=== PATIENT | male | born 1965 | race Caucasian/White ===

== ENCOUNTER 2024-09-16 11:34 | Emergency (ER) | payer BC, SELFPAY ==
--- NOTE | 2024-09-16 11:39 | ED.EXTPRO ---
HPI - Extremity Problem General Chief complaint: Extremity Problem,Nontraumatic Stated complaint: L LEG SWELLING Source: patient and RN notes reviewed Mode of arrival: ambulatory Limitations: no limitations History of Present Illness HPI Narrative: Patient is a 58-year-old male who presents to the [facility] complaints left lower leg pain and swelling that started yesterday morning. Patient states that he woke up with the pain and swelling. He also noted a discoloration to his left lower leg yesterday. States that the pain is present when ambulating. There is notable swelling in the left lower leg compared to that of the right. Reddish/purplish discoloration noted to the left lower leg upon assessment. Sensation is intact and patient denies numbness. Patient is neurovascularly intact. He denies any recent travel. Denies chest pain or shortness of breath. Denies injury to the leg. Related Data Allergies Allergy/AdvReac Type Severity Reaction Status Date / Time No Known Allergies Allergy Verified 09/16/24 11:47 Review of Systems Review of Systems: CONSTITUTIONAL: Denies fever, chills, or sweats. EYES: Denies visual changes, redness, or discharge. ENT: Denies otalgia and sore throat CARDIOVASCULAR: Denies chest pain, palpitations, or edema. RESPIRATORY: Denies cough or dyspnea. GASTROINTESTINAL: Denies abdominal pain, nausea, vomiting, or diarrhea. GENITOURINARY: Denies dysuria or hematuria. SKIN: Reports discoloration to the left lower leg. MUSCULOSKELETAL: Reports left lower leg pain and swelling. NEUROLOGIC: Denies headache, numbness, or weakness. Pertinent positives per HPI. PMFSH Comments At the time of my signature, I reviewed and agree with the nursing past medical, surgical, social, and family history. There is no relevant family history pertinent to the patient complaint. Exam Narrative: GENERAL: This is a well-nourished, well-developed patient, in no apparent distress. HEAD: normocephalic, atraumatic. EYES: Sclera clear/white. Vision is grossly intact. EARS: External ears normal. Hearing grossly intact. NOSE: External nose normal with no obvious nasal discharge, nares without redness, no rhinorrhea. THROAT: Mucous membranes moist. NECK: Neck supple, non-tender without lymphadenopathy, masses or thyromegaly. CARDIOVASCULAR: Regular rate and rhythm without murmurs, gallops, or rubs. RESPIRATORY: Clear to auscultation. Breath sounds equal bilaterally. No wheezes, rales, or rhonchi. GASTROINTESTINAL: Abdomen soft, non-tender, nondistended. Bowel sounds are active. No hepato-splenomegaly, or palpable masses. No guarding. SKIN: Warm, intact. Purpura rash noted to the left lower leg. NEURO: awake, alert, and oriented to person, place and time. There were no obvious focal neurologic abnormalities. EXTREMITIES: Notable swelling to left lower leg. Distal motor and neurovascular status intact. Course Course Level of Care: Express Care Visit Vital Signs Vital signs: Vital Signs Temperature 97.5 F L 09/16/24 11:43 Pulse Rate 90 09/16/24 11:43 Respiratory Rate 16 09/16/24 11:43 Blood Pressure 163/101 H 09/16/24 11:43 Pulse Oximetry 100 09/16/24 11:43 Temperature 97.5 F L 09/16/24 11:43 Pulse Rate 90 09/16/24 11:43 Respiratory Rate 16 09/16/24 11:43 Blood Pressure 163/101 H 09/16/24 11:43 Pulse Oximetry 100 09/16/24 11:43 Reviewed Transfer Transfered to: [place] Transportation: Other (private vehicle) Transfer rationale: Appropriate testing and treatment for left lower leg pain and swelling Accepting physician: Dr. Garcias [facility] - Extremity (Nontraumatic) [facility] Narrative Medical decision making narrative: Patient was transferred to [facility] ED for further evaluation and treatment of his left lower leg pain and swelling. Patient was accepted by Dr. Garcias. Patient will be transferred via private vehicle. Differential Diagnosis Differential diagnosis: Likely cellulitis, superficial thrombophlebitis, lower extremity edema, deep vein thrombosis of lower extremity and other (vasculitis) Critical Care Time Critical Care Time Critical Care Time: No Discharge Plan Discharge Clinical Impression: Pain and swelling of left lower leg Patient Disposition: Acute Care Hospital Condition: Stable Additional Instructions: Go directly to [facility] emergency department for further evaluation and treatment. Patient Language: Wolof Follow-up/Referrals: Janeth,Venancio Haro MD [Primary Care Provider] - Time of Disposition: 11:51
[2024-09-16 11:43] VITALS: BP 163/101; PULSE 90; RESP 16; TEMP 36.4; O2SAT 100
== END 2024-09-16 11:51 | disposition short-term general hospital (02) ==
PROVIDERS: Emergency Provider Nurse Practitioner; PCP Family Medicine Sports Medicine
DX: M79.662 Pain in left lower leg (principal); R22.42 Localized swelling, mass and lump, left lower limb
CPT/HCPCS: 99212; G0463

== ENCOUNTER 2024-09-16 12:09 | Emergency (ER) | payer BC, SELFPAY ==
--- NOTE | ~2024-09-16 | US_ITS ---
EXAMINATION: US venous doppler [facility] DATE: 09/16/2024 13:36 INDICATION: Left lower limb pain, swelling and erythema TECHNIQUE: Grayscale ultrasound images without and with compression and Doppler ultrasound images of the left lower extremity veins were obtained. COMPARISON: None. FINDINGS: The visualized portions of left common femoral vein, profunda (deep) femoral vein, femoral vein, popl iteal vein, peroneal veins, posterior tibial veins, gastrocnemius vein and greater saphenous vein out flow are patent. IMPRESSION: 1. No deep venous thrombosis in the left lower limb. Reviewed, dictated and finalized at location B. [facility]
[2024-09-16 12:12] VITALS: BP 180/88; PULSE 86; RESP 18; TEMP 36.7; O2SAT 100
--- NOTE | 2024-09-16 13:08 | ED.EXTPRO ---
HPI - Extremity Problem General Chief complaint: Extremity Problem,Nontraumatic Stated complaint: Left leg inflammation and swelling since yesterday Time Seen by Provider: 09/16/24 12:21 History of Present Illness HPI Narrative: Patient is a 58-year-old male who presents ER with inflammation to the left leg. Ongoing for approximately 48 hours. Initially had some fever sensation of fever and fatigue. He then developed discomfort to the leg. He had bruising this morning above his sock line. He reports it is itchy was unsure if he scratched it too hard. No chest pain or chest pressure. Has not had issues like this before. No change in urination. Related Data Allergies Allergy/AdvReac Type Severity Reaction Status Date / Time No Known Allergies Allergy Verified 09/16/24 12:10 Review of Systems Review of Systems: All systems reviewed & are unremarkable except as noted in HPI and below Constitutional: Constitutional: Reports no additional constitutional complaints ENT: Reports system reviewed and no additional complaints, except as documented Cardiovascular: Cardiovascular: Reports no additional cardiovascular complaints Respiratory: Respiratory: Reports no additional respiratory complaints Musculoskeletal: Musculoskeletal: Reports no additional musculoskeletal complaints Integumentary/Breasts: Skin/Breast: Reports erythema and Reports rash PMFSH Past Medical History Medical History (Updated 09/16/24 @ 15:55 by Herve Matos MD) Healthy adult male Surgical History Surgical History (Updated 09/16/24 @ 13:10 by Herve Matos MD) No pertinent past surgical history Exam Narrative: GENERAL: Well-appearing, well-nourished, and in no acute distress. HEAD: Normocephalic, atraumatic. ENT: Mucous membranes moist. CHEST: Clear to auscultation. No respiratory distress. HEART: Regular rate and rhythm. Normal peripheral pulses. ABDOMEN: Soft, nontender, nondistended. EXTREMITIES: Normal range of motion. LLE>RLE edema. SKIN: Warm, dry, reddish contusion circumferentially around distal third of tibia. NEURO: Alert and oriented x3. PSYCH: Normal mood and affect. Course Course Emergency Course: Labs reassuring. No DVT. Discharge with oral antibiotics for cellulitis. Vital Signs Vital signs: Vital Signs Temperature 98.0 F 09/16/24 12:12 Pulse Rate 86 09/16/24 12:12 Respiratory Rate 18 09/16/24 12:12 Blood Pressure 180/88 H 09/16/24 12:12 Pulse Oximetry 100 09/16/24 12:12 Oxygen Delivery Room Air 09/16/24 12:12 Temperature 98.0 F 09/16/24 12:12 Pulse Rate 82 09/16/24 14:42 Respiratory Rate 17 09/16/24 14:42 Blood Pressure 167/88 H 09/16/24 14:42 Pulse Oximetry 99 09/16/24 14:42 Oxygen Delivery Room Air 09/16/24 12:12 MDM - Extremity (Nontraumatic) Lab Data 09/16/24 12:58 09/16/24 12:58 Labs: Lab Results 09/16/24 Range/Units 12:58 WBC 8.3 (4.5-10.0) K/mm3 RBC 4.30 L (4.6-6.20) M/mm3 Hgb 14.6 (14.0-18.0) g/dL Hct 42.4 (42.0-52.0) % MCV 98.6 (80-100) fl MCH 34.0 (26-34) pg MCHC 34.4 (32-36) g/dl RDW 11.9 (11.5-14.5) % Plt Count 179 (150-375) k/mm3 MPV 9.5 (7.4-10.4) fl Immature Gran % (Auto) 0.4 (0-0.5) % Neut % (Auto) 76.0 H (45.5-73.1) % Lymph % (Auto) 12.1 L (18.3-44.2) % [place] % (Auto) 10.5 H (2.6-8.5) % Eos % (Auto) 0.5 (0-4.4) % Baso % (Auto) 0.5 (0.2-1.2) % Lymph # (Auto) 1.00 (0.9-3.2) K/mm3 [place] # (Auto) 0.9 H (0.1-0.6) K/mm3 Eos # (Auto) 0.0 (0-0.3) K/mm3 Baso # (Auto) 0.0 (0.0-0.1) K/mm3 Abs Immat Gran (auto) 0.03 (0.00-0.031) K/mm3 Absolute Neuts (auto) 6.3 (1.3-6.7) K/mm3 Absolute Nucleated RBC 0.000 (0.0-0.012) K/mm3 Nucleated RBC % 0.0 (0.0-0.2) % PT 13.5 (11.1-14.7) Seconds INR 1.0 APTT 30.1 (22.3-36.8) Seconds Sodium 138 (137-145) mmol/L Potassium 3.9 (3.4-5.0) mmol/L Chloride 102 (98-107) mmol/L Carbon Dioxide 22 (22-30) mmol/L Anion Gap 14 H (4-12) mmol/L BUN 10 (9-20) mg/dL Creatinine 0.73 (0.7-1.3) mg/dL Estim Creat Clear Calc 81 ml/min Estimated GFR > 60 (59 - ) Glucose 110 (65-110) mg/dL Calcium 9.9 (8.4-10.2) mg/dL Total Bilirubin 0.5 (0.2-1.3) mg/dL AST 27 (17-59) U/L ALT 20 (6-50) U/L Alkaline Phosphatase 79 (38-126) U/L Total Protein 8.0 (6.3-8.2) g/dL Albumin 4.1 (3.5-5.1) g/dL Urine Color Yellow (Yellow) Urine Appearance Clear (Clear) Urine pH 6.0 (5.0-9.0) Ur Specific [place] 1.022 (1.001-1.035) Urine Protein 1+ H (Negative) mg/dL Urine Glucose (UA) Negative (Negative) mg/dL Urine Ketones Trace H (Negative) mg/dL Ur Blood (Man) Negative (Negative) Urine Nitrate Negative (Negative) Urine Bilirubin Negative (Negative) Urine Urobilinogen 1.0 (<2.0) mg/dL Add Ur Microanalysis Reviewed Leukocyte Esterase Rfl Negative (Negative) JAMAAL/UL Urine RBC 0-2 (0-2) /hpf Urine WBC 0-5 (0-3) /hpf Ur Squamous Epith Cells None seen (Few) /hpf Urine Bacteria None seen /hpf Urine Casts 6-10 Hyaline Casts Present (None) /lpf Influenza A (RT-PCR) Negative (Negative) Influenza B (RT-PCR) Negative (Negative) RSV (RT-PCR) Negative (Negative) SARS-CoV-2 RNA (RT-PCR) Negative (Negative) Imaging Data Radiologist's impression: ITS Impressions Venous Doppler Study 09/16/24 13:39 IMPRESSION: 1. No deep venous thrombosis in the left lower limb. Discharge Plan Discharge Clinical Impression: Cellulitis Patient Disposition: Home, Self-Care Condition: Stable Instructions: Antibiotic Form, Cellulitis (ED) Additional Instructions: Return the ER if you have words ending redness, have fever over 101F, or you have other concerns. Patient Language: Amharic Prescriptions: New cefuroxime axetil 500 mg tablet 500 mg PO BID Qty: 14 0RF Follow-up/Referrals: Janeth,Venancio Haro MD [Primary Care Provider] - 1 Week
[2024-09-16 13:09] LABS: Basophils Percent Auto 0.5 % (0.2-1.2); Eosinophils Percent Auto 0.5 % (0-4.4); Hematocrit 42.4 % (42.0-52.0); Hemoglobin 14.6 g/dL (14.0-18.0); Immature Granulocyte Absolute 0.03 K/mm3 (0.00-0.031); Immature Granulocyte Percent A 0.4 % (0-0.5); Lymphocytes Percent Auto 12.1 % (18.3-44.2); Mean Corpuscular HGB Conc 34.4 g/dl (32-36); Mean Corpuscular Volume 98.6 fl (80-100); Mean Platelet Volume 9.5 fl (7.4-10.4); Monocytes Absolute Auto 0.9 K/mm3 (0.1-0.6); Monocytes Percent Auto 10.5 % (2.6-8.5); Neutrophils Absolute Auto 6.3 K/mm3 (1.3-6.7); Platelet Count Result 179 k/mm3 (150-375); Red Cell Distribution Width 11.9 % (11.5-14.5); White Blood Count 8.3 K/mm3 (4.5-10.0)
[2024-09-16 13:22] LABS: Alanine Aminotransferase 20 U/L (6-50); Albumin Level 4.1 g/dL (3.5-5.1); Alkaline Phosphatase 79 U/L (38-126); Anion Gap 14 mmol/L (4-12); Aspartate Amino Transferase 27 U/L (17-59); Bilirubin,Total 0.5 mg/dL (0.2-1.3); Blood Urea Nitrogen 10 mg/dL (9-20); Calcium 9.9 mg/dL (8.4-10.2); Carbon Dioxide 22 mmol/L (22-30); Chloride 102 mmol/L (98-107); Estimated CRCL calculation 81 ml/min; Estimated Glomerular Filt Rate > 60; Glucose 110 mg/dL (65-110); Potassium 3.9 mmol/L (3.4-5.0); Sodium 138 mmol/L (137-145)
[2024-09-16 13:28] LABS: Prothrombin Time 13.5 Seconds (11.1-14.7)
[2024-09-16 13:29] LABS: Partial Thromboplastin Time 30.1 Seconds (22.3-36.8)
--- OUTSIDE RECORDS SUMMARY | 2024-09-16 13:37 | XMS_ITS | Clinical Summary ---
Author Organization [facility] Address [address] [place] [address] Care Team Providers Care Editor Greeting Card Name Role Phone Venancio Fowler MD Primary Care Provider [phone] Allergies No known active allergies Medications albuterol sulfate HFA 108 (90 Base) MCG/ACT inhalerIndicatio ns:Chronic obstructive pulmonary disease, unspecified COPD type (CMS/HCC HHS/HCC) INHALE 2 PUFFS INTO THE LUNGS EVERY 6 (SIX) HOURS NEEDED FOR WHEEZING OR SHORTNESS OF BREATH. 18 g 2 4 Active ANORO ELLIPTA 62.5-25 MCG/ACT inhalerIndicatio ns:Chronic obstructive pulmonary disease, unspecified COPD type (CMS/HCC HHS/HCC) TAKE 1 PUFF BY MOUTH EVERY DAY 60 each 1 5 Active Active Problems Problem Noted Date Diagnosed Date Primary hypertension 08/23/2022 Chronic obstructive pulmonar y disease, unspecified COPD type (CMS/HCC HHS/HCC) 08/23/2022 Family History Relation Status Comments Father Mother Alive Social History Tobacco Use Types Packs/Day Years Used Date Smoking Tobacco: Every Day Cigarettes 0.5 40 Smokeless Tobacco: Never Tobacco Cessation:Ready to Q uit: No; Counseling Given: Yes Alcohol Use Standard Drinks/Week Comments Yes 0 (1 standard drink = 0.6 oz pur e alcohol) PHQ-2 Answer Date Recorded Patient Health Questionnaire-2 Score 0 05/21/2024 Sex and Gender Information Value Date Recorded Sex Assigned at Not on file Legal Sex Male 7:58 PM CDT Gender Identity Not on file Sexual Orientation Not on file Last Filed Vital Signs Vital Sign Reading Time Taken Comments Blood Pressure 135/87 05/21/2024 3:19 PM SENIOR ANALYST PROGRAMMER Pulse 94 05/21/2024 3:19 PM SENIOR ANALYST PROGRAMMER Temperature 37.1 C (98.8 F) 05/21/2024 3:19 PM SENIOR ANALYST PROGRAMMER Respiratory Rate 16 05/21/2024 3:19 PM SENIOR ANALYST PROGRAMMER Oxygen Saturation 99% 05/21/2024 3:19 PM SENIOR ANALYST PROGRAMMER Inhaled Oxygen Concentration - - Weight 59.7 kg (131 lb 9.6 oz) 05/21/2024 3:19 P M SENIOR ANALYST PROGRAMMER Height 169.5 cm (5' 6.75 ) 05/21/2024 3:19 PM CS T Body Mass Index 20.77 05/21/2024 3:19 PM SENIOR ANALYST PROGRAMMER Plan of Treatment Health Maintenance Due Date Last Done Comments Colorectal Cancer Screening Colonoscopy (10 Years) 1965 Annual Physical 1968 Pneumococcal Vaccine: Pediat rics (0 to 5 Years) and At-Risk Patients (6 to 64 Years) (1 of 2 - PCV) 11/09/1971 Hepatitis C 11/09/1983 DTaP, Tdap and Td Vaccines ( 1 - Tdap) 1984 Hepatitis B Vaccines (1 of 3 - 19+ 3-dose series) 1984 Lung Cancer Screening 11/09/2015 Zoster Vaccines (1 of 2) 11/09/2015 PHQ-2 (Physician Citizen [place]) 07/15/2024 05/21/2024 COVID-19 Vaccine (1 - 2023-2 5 season) 2025 Postponed from 03/15 (Patient Refused) Influenza Adult (#1) 2025 Postpon ed from 04/14/2024 (Patient Refused) PHQ-2 (Physician [place]) 05/21/2025 05/21/2024 Meningococcal B Vaccine Aged Out No l onger eligible based on patient's age to complete this topic Meningococcal Vaccine Aged Out No isaura zara eligible based on patient's age to complete this topic RSV Immunizations Under 20 Months Aged Out No longer eligible based on patient's age to complete this topic Insurance [facility] Care Teams Editor Greeting Card Relationship Specialty Start Date End Date Venancio Fowler MD [address] [facility] [address] [place] [address] PCP - General FAMILY PRACTICE 03/13/22
[2024-09-16 13:40] LABS: Add Urine Microscopic? YES; Appearance Urine Clear (Clear); Bacteria Urine None Seen /hpf; Bilirubin Urine Negative (Negative); Blood Urine Negative (Negative); Color Urine Yellow (Yellow); Glucose Urine UA Negative (Negative); Hyaline Casts Urine Present /lpf; Ketones Urine Trace mg/dL (Negative); Leukocyte Esterase Ur Negative LEU/UL (Negative); Need Manual Microscopic Reviewed; Nitrate Urine Negative (Negative); Protein Urine 1+ mg/dL (Negative); RBC Urine 0-2 /hpf (0-2); Specific Grav Ur 1.022 (1.001-1.035); Squamous Epithelial Cell Urine None Seen /hpf (Few); WBC Urine 0-5 /hpf (0-3)
[2024-09-16 13:47] LABS: Influenza A QL RT-PCR Negative (Negative); Influenza B QL RT-PCR Negative (Negative); RSV RNA, RT-PCR Negative (Negative); SARS-CoV-2 RNA PCR Negative (Negative)
[2024-09-16 14:42] VITALS: BP 167/88; PULSE 82; RESP 17; O2SAT 99
--- OUTSIDE RECORDS SUMMARY | 2024-09-16 14:58 | XMS_ITS | Clinical Summary ---
Author Organization [facility] Address [address] [place] [address] Care Team Providers Care Road Mixer Operator Name Role Phone Venancio Fowler MD Primary Care Provider [phone] Allergies No known active allergies Medications albuterol [...] Comments Blood Pressure 135/87 05/21/2024 3:19 PM KILN PULLER Pulse 94 05/21/2024 3:19 PM KILN PULLER Temperature 37.1 C (98.8 F) 05/21/2024 3:19 PM KILN PULLER Respiratory Rate 16 05/21/2024 3:19 PM KILN PULLER Oxygen Saturation 99% 05/21/2024 3:19 PM KILN PULLER Inhaled Oxygen Concentration - - Weight 59.7 kg (131 lb 9.6 oz) 05/21/2024 3:19 P M KILN PULLER Height 169.5 cm (5' 6.75 ) 05/21/2024 3:19 PM CS T Body Mass Index 20.77 05/21/2024 3:19 PM KILN PULLER Plan of Treatment Health Maintenance Due Date [...] Vaccines (1 of 2) 11/09/2015 PHQ-2 (Physician [place]) 07/15/2024 05/21/2024 COVID-19 Vaccine (1 - 2023-2 5 season) 2025 Postponed from 03/15 (Patient Refused) Influenza Adult (#1) 2025 Postpon ed from 04/14/2024 (Patient Refused) PHQ-2 (Physician [place]) 05/21/2025 05/21/2024 Meningococcal B Vaccine Aged Out No l onger eligible based on patient's age to complete this topic Meningococcal Vaccine Aged Out No isaura zara eligible based on patient's age to complete this topic RSV Immunizations Under 20 Months Aged Out No longer eligible based on patient's age to complete this topic Insurance [facility] [facility] Care Teams Road Mixer Operator Relationship Specialty Start Date End Date Venancio Fowler MD [address] [facility] [address] [place] [address] PCP - General FAMILY PRACTICE 03/13/22
[2024-09-16 16:13] VITALS: BP 181/96; PULSE 86; RESP 16; O2SAT 100
== END 2024-09-16 16:10 | disposition home or self-care (01) ==
PROVIDERS: Emergency Provider Emergency Medicine; PCP Family Medicine Sports Medicine
DX: L03.116 Cellulitis of left lower limb (principal); Z20.822 Contact with and (suspected) exposure to COVID-19
CPT/HCPCS: 36415; 80053; 81001; 85025; 85610; 85730; 87637; 93971; 99284